=== PATIENT | male | born 1975 | race Two or more races ===

== ENCOUNTER 2018-10-06 13:30 | Outpatient (CLI) | payer OTHER ==
[~2018-10-06 13:30] MED LIST: CIPROFLOXACIN750 MG PO; CLONAZEPAM1 MG PO; DOCUSATE SODIU100 MG PO; GABAPENTIN800 MG PO; METHYLPRED4 MG/DOSE- PO; PERCOCET 5/3251 TAB PO
== END 2018-10-06 15:20 | disposition home or self-care (01) ==
LOC: RAD 501 13:30
DX: M66.822 Spontaneous rupture of other tendons, left upper arm (principal); M54.5 Low back pain